=== PATIENT | female | born 1970 | race Hispanic/Latino ===

== ENCOUNTER 2018-12-02 14:53 | Emergency (ER) | payer OTHER ==
[2018-12-02 15:06] VITALS: BP 154/107
--- NOTE | 2018-12-02 17:34 | Emergency Department Report ---
Blank Doc - Documentation Documentation: This is a 47 y.o. female that presents with upper respiratory symptoms that st arted 4 days ago. PMH of HTN. Patient reports myalgia started yesterday. States headache feel like some body is squeezing her brain. She reports having a headache before but nothing like this. She is currently taking ibuprofen with no improvement of symptoms. Ordered: CT of head Fast track for further evaluation.
--- NOTE | 2018-12-02 19:28 | Emergency Department Report ---
ED Headache HPI - General Chief Complaint: Headache Stated Complaint: BODY PAIN/FEVER/COUGH/HEADACHE Time Seen by Provider: 12/02/18 17:30 - History of Present Illness Initial Comments: This is a 47 y.o. female that presents with upper respiratory symptoms that started 4 days ago. PMH of HTN, and occasional headache, Patient reports myalgia and bodyaches started yesterday. States headache feels like some body is squeezing her brain. She reports having a headache before but nothing like this. She is currently taking ibuprofen with no improvement of symptoms. symptoms are exacerbated by activity and positions, there is associated cough, rhinorrhea , sinus pressure, and fever tmax 101.3 there is no neck stiffness. Timing/Duration: other (4 days ) Quality: moderate Head Injury Location: frontal Recent Head Trauma: occasional headaches Modifying Factors: improves with: movement Associated Symptoms: facial pain, fever/chills, nasal congestion, nasal drainage, sinus infection Allergies/Adverse Reactions: Allergies No Known Allergies Allergy (Verified 12/02/18 14:54) Home Medications: Ambulatory Orders Atenolol/Chlorthalidone [Tenoretic 50-25 mg] 1 tab PO DAILY 10/06/14 Levonorgestrel-Ethin Estradiol [Lutera-28 Tablet] 1 each PO DAILY 10/06/14 Omeprazole Magnesium [PriLOSEC Otc] 20 mg PO QDAY #30 tablet. 10/07/14 Ciprofloxacin HCl [Ciprofloxacin TAB] 500 mg PO Q12HR #14 tab 06/27/15 HYDROcodone/APAP 5-325 [[place] 5/325] 1 each PO Q6HR PRN #8 tablet 06/27/15 Phenazopyridine [Pyridium] 200 mg PO Q8H #9 tab 06/27/15 Azithromycin [Zithromax] 250 mg PO QDAY #5 tablet 09/17/15 Vit-Fe Fumar-FA [ Vitamin] 1 tab PO QDAY #90 tablet 09/17/15 Acetaminophen [Tylenol Extra Strength] 1,000 mg PO QID PRN #30 tablet 12/02/18 Amoxicillin 500 mg PO TID 10 Days #30 capsule 12/02/18 Metoclopramide [Reglan] 10 mg PO TID PRN #30 tab 12/02/18 diphenhydrAMINE [Benadryl CAP] 25 mg PO Q8HR PRN #30 capsule 12/02/18 ED Review of Systems ROS: Stated complaint: BODY PAIN/FEVER/COUGH/HEADACHE Other details as noted in HPI Constitutional: fever. denies: chills Eyes: denies: eye pain, eye discharge, vision change ENT: ear pain, throat pain, congestion Respiratory: cough Cardiovascular: denies: chest pain, palpitations Endocrine: no symptoms reported Gastrointestinal: denies: abdominal pain, nausea, vomiting, diarrhea Genitourinary: denies: urgency, dysuria, discharge Musculoskeletal: denies: back pain, joint swelling, arthralgia Skin: denies: rash, lesions Neurological: headache. denies: weakness, numbness, paresthesias, confusion, abnormal gait, vertigo Psychiatric: denies: anxiety, depression Hematological/Lymphatic: denies: easy bleeding, easy bruising ED Past Medical Hx - Past Medical History Previous Medical History?: Yes Hx Hypertension: Yes Hx Congestive Heart Failure: No Hx Diabetes: No Hx Headaches / Migraines: Yes Hx Asthma: No Hx COPD: No - Surgical History Past Surgical History?: Yes Hx Appendectomy: Yes Additional Surgical History: Salpingectomy (bilateral) - Social History Smoking Status: Never Smoker Substance Use Type: Alcohol - Medications Home Medications: Home Medications Medication Instructions Recorded Confirmed Last Taken Type Atenolol/Chlorthalidone [Tenoretic 1 tab PO DAILY 10/06/14 10/06/14 10/06/14 History 50-25 mg] Levonorgestrel-Ethin Estradiol 1 each PO DAILY 10/06/14 10/06/14 Unknown History [Lutera-28 Tablet] Omeprazole Magnesium [PriLOSEC Otc] 20 mg PO QDAY #30 tablet. 10/07/14 Unknown Rx Ciprofloxacin HCl [Ciprofloxacin 500 mg PO Q12HR #14 tab 06/27/15 Unknown Rx TAB] HYDROcodone/APAP 5-325 [[place] 1 each PO Q6HR PRN #8 tablet 06/27/15 Unknown Rx 5/325] Phenazopyridine [Pyridium] 200 mg PO Q8H #9 tab 06/27/15 Unknown Rx Azithromycin [Zithromax] 250 mg PO QDAY #5 tablet 09/17/15 Unknown Rx Vit-Fe Fumar-FA [ 1 tab PO QDAY #90 tablet 09/17/15 Unknown Rx Vitamin] Acetaminophen [Tylenol Extra 1,000 mg PO QID PRN #30 tablet 12/02/18 Unknown Rx Strength] Amoxicillin 500 mg PO TID 10 Days #30 capsule 12/02/18 Unknown Rx Metoclopramide [Reglan] 10 mg PO TID PRN #30 tab 12/02/18 Unknown Rx diphenhydrAMINE [Benadryl CAP] 25 mg PO Q8HR PRN #30 capsule 12/02/18 Unknown Rx ED Physical Exam - General Limitations: No Limitations General appearance: alert, in no apparent distress - Head Head exam: Present: atraumatic, normocephalic, normal inspection - Expanded Head Exam Expanded Head exam: Absent: laceration, abrasion, contusion, hematoma, racoon eyes, munguia's sign, general tenderness, tenderness of temporal artery, CSF rhinorrhea, CSF otorrhea - Eye Eye exam: Present: normal appearance, PERRL, EOMI Pupils: Present: normal accommodation - ENT ENT exam: Present: other (uvula midline no Bilat frontal and maxillary sinus tenderness no facial swelling or erythema, bilat nasal turbinate erythema boggy clear rhinorrhea ) - Expanded ENT Exam Expanded Ear exam: Present: normal external inspection TM/Canal exam: Erythema: Left TM, Canal Tenderness: Left TM Mouth exam: Absent: trismus Throat exam: Positive: normal inspection, tonsillar erythema. Negative: tonsillomegaly, tonsillar exudate, R peritonsillar mass, L peritonsillar mass - Neck Neck exam: Present: normal inspection, full ROM, other (stridor no exudate no lesion no stridor clear post nasal drip no tonilar swelling or abscess). Absent: tenderness, meningismus, lymphadenopathy, thyromegaly - Expanded Neck Exam Expanded Neck exam: Present: other (rom intact unrestricted to all ley without pain ). Absent: tenderness, midline deformity, anterior neck swelling, thyroid mass, carotid bruit, tracheal deviation - Respiratory Respiratory exam: Present: normal lung sounds bilaterally. Absent: respiratory distress, wheezes, stridor, chest wall tenderness, prolonged expiratory - Cardiovascular Cardiovascular Exam: Present: regular rate, normal rhythm, normal heart sounds. Absent: systolic murmur, diastolic murmur, rubs, gallop - GI/Abdominal GI/Abdominal exam: Present: soft, normal bowel sounds. Absent: distended, tenderness, bruit, hernia - Rectal Rectal exam: Present: deferred - Extremities Exam Extremities exam: Present: normal inspection, full ROM, normal capillary refill. Absent: tenderness, pedal edema, joint swelling - Back Exam Back exam: Present: normal inspection, full ROM. Absent: tenderness, CVA tenderness (R), CVA tenderness (L), muscle spasm, paraspinal tenderness, vertebral tenderness, rash noted - Neurological Exam Neurological exam: Present: alert, oriented X3, CN II-XII intact, normal gait, reflexes normal. Absent: motor sensory deficit - Expanded Neurological Exam Expanded Neurological exam: Absent: ataxia Patient oriented to: Present: person, place Speech: Present: fluid speech Cranial nerves: EOM's Intact: Normal, Gag Reflex: Normal, Tongue Deviation: Normal, Nystagmus: Normal, Facial Sensation: Normal, Facial Palsy with Forehead Movement: Normal, Facial Palsy without Forehead Movement: Normal Cerebellar function: Finger to Nose: Normal, Heel to Luu: Normal, Romberg: Normal Upper motor neuron: Mihir Neglect: Normal, Pronator Drift: Normal, Babinski Sign: Normal, Sensory Extinction: Normal Sensory exam: Upper Extremity Light Touch: Normal, Upper Extremity Pin Prick: Normal, Upper Extremity Temperature: Normal, UE 2 Point Discrimination: Normal, Lower Extremity Light Touch: Normal, Lower Extremity Pin Prick: Normal, Lower Extremity Temperature: Normal, LE 2 Point Discrimination: Normal Motor strength exam: RUE: 5, LUE: 5, RLE: 5, LLE: 5 DTR: bicep (R): 2+, bicep (L): 2+, ankle (R): 2+, ankle (L): 2+ Best Eye Response (Josephine): (4) open spontaneously Best Motor Response (Fifi): (6) obeys commands Best Verbal Response (Fifi): (5) oriented Fifi Total: 15 - Psychiatric Psychiatric exam: Present: normal affect, normal mood - Skin Skin exam: Present: warm, dry, intact, normal color. Absent: rash ED Course Vital Signs 12/02/18 15:05 Temperature 100.1 F H Pulse Rate 112 H Respiratory 18 Rate Blood Pressure 154/107 [Right] O2 Sat by Pulse 97 Oximetry ED Medical Decision Making - Radiology Data Radiology results: report reviewed, image reviewed FINAL REPORT EXAM: CT HEAD/BRAIN WO CON HISTORY: headache TECHNIQUE: Standard unenhanced CT of the head at 5.0 millimeter axial increments. PRIORS: None. FINDINGS: The ventricular system is normal in size and configuration. There is no evidence for parenchymal volume loss. There is no evidence for mass lesion, mass effect, midline shift, acute intracranial hemorrhage, or acute ischemia/ infarction. No evidence for acute skull fracture is seen. No acute abnormality in the overlying scalp soft tissues is seen. There a an 8 mm rounded focus in the subcutaneous fat over the lateral right parietal region (axial image 55) likely a sebaceous cyst. Visualized paranasal sinuses are clear. IMPRESSION: No acute intracranial process noted. Rounded focus in the fat overlying the lateral right parietal region, likely a sebaceous cyst. Transcribed By: [facility] Dictated By: YESSICA GARCIA MD Electronically Authenticated By: YESSICA GARCIA MD Signed Date/Time: 12/02/181954 DD/ 53 TD/TT: 12/02/181953 - Medical Decision Making frontal headache pain is improved to 1/10 after medications given in ed , CT No bleed no mass sinuses clear, right parietal sebaceous cyst non painful, pt is currently a/o x 3 ambulatory with steady gait no photophobia no n/v no fever no neck pain , pt has hx of otf: on Atenolol /chlorthalidone , instructed to take medication upon arrival to home, pt denies dizziness no light headedness no n/v no sob no back pain , noted left TM erythema pain with movement , pt verbalized understanding of same. plan dc to home with rx for tylenol, benadryl, reglan, and amoxicillin ,pt will follow up with pcp in 2-3 days given referral for [facility] pt verbalized agreement and understanding of discharge instructions. Critical care attestation.: If time is entered above; I have spent that time in minutes in the direct care of this critically ill patient, excluding procedure time. ED Disposition Clinical Impression: Headache Qualifiers: Headache type: unspecified Headache chronicity pattern: acute headache Intractability: not intractable Qualified Code(s): R51 - Headache AOM (acute otitis media) Qualifiers: Otitis media type: serous Laterality: left Recurrence: non-recurrent Qualified Code(s): H65.02 - Acute serous otitis media, left ear URI (upper respiratory infection) Qualifiers: URI type: unspecified viral URI Qualified Code(s): J06.9 - Acute upper respiratory infection, unspecified Disposition: - TO HOME OR SELFCARE Is pt being admited?: No Does the pt Need Aspirin: No Condition: Stable Instructions: Acute Headache (ED), Otitis Media (ED), Upper Respiratory Infection (ED) Prescriptions: Acetaminophen [Tylenol Extra Strength] 1,000 mg PO QID PRN #30 tablet PRN Reason: headache Amoxicillin 500 mg PO TID 10 Days #30 capsule diphenhydrAMINE [Benadryl CAP] 25 mg PO Q8HR PRN #30 capsule PRN Reason: headache Metoclopramide [Reglan] 10 mg PO TID PRN #30 tab PRN Reason: Headache Forms: Work/School Release Form(ED) Time of Disposition: 21:34
--- NOTE | 2018-12-02 19:55 | Cat Scan Report ---
FINAL REPORT EXAM: CT HEAD/BRAIN WO CON HISTORY: headache TECHNIQUE: Standard unenhanced CT of the head at 5.0 millimeter axial increments. PRIORS: None. FINDINGS: The ventricular system is normal in size and configuration. There is no evidence for parenchymal volu me loss. There is no evidence for mass lesion, mass effect, midline shift, acute intracranial hemorrhage, or a cute ischemia/ infarction. No evidence for acute skull fracture is seen. No acute abnormality in the overlying scalp soft tissu es is seen. There a an 8 mm rounded focus in the subcutaneous fat over the lateral right parietal reg ion (axial image 55) likely a sebaceous cyst. Visualized paranasal sinuses are clear. IMPRESSION: No acute intracranial process noted. Rounded focus in the fat overlying the lateral right parietal re gion, likely a sebaceous cyst.
[2018-12-02] MEDS ORDERED: TYLENOL PO ONE (20:35)
[2018-12-02] MEDS ORDERED: DECADRON IM ONE (20:35)
[2018-12-02] MEDS ORDERED: BANOPHEN PO ONE (20:35)
[2018-12-02] MEDS ORDERED: REGLAN PO ONE (20:35)
[2018-12-02] MEDS ORDERED: BENADRYL PO ONE ×2 (21:13)
== END 2018-12-02 21:40 | disposition home or self-care (01) ==
LOC: ED 14:53
DX: J06.9 Acute upper respiratory infection, unspecified (principal); H65.02 Acute serous otitis media, left ear; I10 Essential (primary) hypertension; Z90.49 Acquired absence of other specified parts of digestive tract; Z90.722 Acquired absence of ovaries, bilateral
CPT/HCPCS: 70450; 96372; 99283; J1100